=== PATIENT | male | born 1965 | race Caucasian/White ===

== ENCOUNTER → 2021-01-30 16:47 | Outpatient (CLI) | payer OTHER, SELFPAY ==
--- NOTE | ~2021-01-30 | XR_ITS ---
XR knee LT 3V DATE: 01/30/2021 17:24 INDICATION: Left knee pain TECHNIQUE: Standing AP and lateral views. [place] view COMPARISON: None FINDINGS: There is mild loss of height at the medial compartment joint . No fracture or dislocation, joint effusion, radiopaque intra-articular loose body or chondrocalcinosis. IMPRESSION: Mild loss of medial compartment joint space Reviewed, dictated and finalized at location A.
--- NOTE | ~2021-01-30 | XR_ITS ---
XR shoulder RT min 2V DATE: 01/30/2021 17:24 INDICATION: Right shoulder pain TECHNIQUE: 4 views COMPARISON: None FINDINGS: There is degenerative spurring at the acromioclavicular joint. No fracture or dislocation, periosteal reaction or bone destruction or abnormal soft tissue calcifica tion. IMPRESSION: Degenerative spurring at acromioclavicular joint Reviewed, dictated and finalized at location A.
== END ==
PROVIDERS: PCP Family Medicine; Visit Provider Family Medicine
DX: M25.562 Pain in left knee (principal); M25.511 Pain in right shoulder; M77.8 Other enthesopathies, not elsewhere classified; R93.7 Abnormal findings on diagnostic imaging of other parts of musculoskeletal system
CPT/HCPCS: 73030; 73562

== ENCOUNTER 2024-05-24 16:44 | Emergency (ER) | payer OTHER, SELFPAY ==
--- NOTE | ~2024-05-24 | XR_ITS ---
EXAM: XR finger 5th RT min 2V DATE: 05/24/2024 17:49 HISTORY: R 5th digit injury . COMPARISON: None available. FINDINGS: Normal mineralization. No fracture. One half bone width anterior displacement of the right fifth middle phalange. No lytic or blastic lesion. Joint spaces are maintained. No erosion or perios teal change. Soft tissue swelling over the right fifth PIP joint. IMPRESSION: Subluxation/mild dislocation of the right fifth PIP joint, with one half bone width anter ior displacement of the middle phalange. No fracture detected. Reviewed, dictated and finalized at location K. IMPRESSION: Subluxation/mild dislocation of the right fifth PIP joint, with one half bone width anterior displacement of the middle phalange. No fracture dete cted.
--- NOTE | ~2024-05-24 | XR_ITS ---
EXAM: XR finger 5th RT min 2V DATE: 05/24/2024 19:20 HISTORY: reduction . COMPARISON: Same date at 5:47 PM. FINDINGS/IMPRESSION: Successful interval reduction of the right fifth PIP joint. No fracture detected . Reviewed, dictated and finalized at location K.
[2024-05-24 16:49] VITALS: BP 123/74; PULSE 70; RESP 16; TEMP 36.4; O2SAT 100
--- NOTE | 2024-05-24 17:48 | ED.UPPEXIN ---
HPI - Extremity Injury (Upper) General Chief Complaint: Extremity Injury, Upper Stated Complaint: right finger injury Time Seen by Provider: 05/24/24 17:02 History of Present Illness HPI narrative: Patient is a 58-year-old male who presents to the ER after landing on his right pinky after a fall. He reports he slipped on wet turf and caught his 5th digit underneath himself. Patient reports he has taken ibuprofen at home for pain relief and is helping. He endorses significant swelling and bruising on that digit but is still able to move it at the joints. Patient denies any other symptoms illness, trauma, pain. Related Data Allergies Allergy/AdvReac Type Severity Reaction Status Date / Time No Known Allergies Allergy Verified 05/24/24 16:47 Review of Systems Review of Systems: All systems reviewed & are unremarkable except as noted in HPI and below Exam Narrative: GENERAL: Well appearing, well-nourished, non-toxic, in no acute distress. HEAD: Normocephalic, atraumatic. NECK: Supple. No adenopathy, no masses. RESPIRATORY: Airway patent, respirations nonlabored. Clear to auscultation bilaterally, no rales, rhonchi, wheezing. CARDIOVASCULAR: Regular rate and rhythm without murmurs, rubs, or gallops. Peripheral pulses 2+ and equal bilaterally. ABDOMINAL: Soft, nontender, nondistended, no hepatosplenomegaly. Normoactive BS. MUSCULOSKELETAL: Moves all extremities. Strength/ROM intact without gross deformities. Decreased movement at the PIP and DIP on the 5th digit of his R hand. SKIN: Warm, dry, normal color. No rashes. Right hand 5th digit is bruised and swollen. NEURO: A&O X3. Speech clear. Cranial nerves II-XII grossly intact. Steady gait. No ataxic movements. PSYCHIATRIC: Appropriate mood and affect. Normal interaction. Course Vital Signs Vital signs: Vital Signs Temperature 36.4 C L 05/24/24 16:49 Pulse Rate 70 05/24/24 16:49 Respiratory Rate 16 05/24/24 16:49 Blood Pressure 123/74 05/24/24 16:49 Pulse Oximetry 100 05/24/24 16:49 Oxygen Delivery Room Air 05/24/24 16:49 Temperature 36.4 C L 05/24/24 16:49 Pulse Rate 70 05/24/24 16:49 Respiratory Rate 16 05/24/24 16:49 Blood Pressure 123/74 05/24/24 16:49 Pulse Oximetry 100 05/24/24 16:49 Oxygen Delivery Room Air 05/24/24 16:49 MDM - Extremity Injury (Upper) MDM Narrative Medical decision making narrative: Patient is a 58-year-old male who presents to the ER after landing on his right pinky after a fall. He reports he slipped on wet turf and caught his 5th digit underneath himself. Patient reports he has taken ibuprofen at home for pain relief and is helping. He endorses significant swelling and bruising on that digit but is still able to move it at the joints. Patient denies any other symptoms illness, trauma, pain. Upon examination patient has decreased movement at the PIP and DIP on the 5th digit of his R hand. Right hand 5th digit is bruised and swollen. Patient's right 5th digit is dislocated but not fracture according to x-ray. Digital block placed at the base of patient's finger. Once patient endorses numbness, [employer] pulled on finger and reduced the dislocation. Repeat x-ray was performed pre reduction was successful. Will splint the patient's R 5th digit and discharged to home with plan to follow up with his PCP in one week. Differential Diagnosis Differential diagnosis: Likely finger sprain, dislocation of finger and other (finger infection) Imaging Data Attestation: I personally reviewed and interpreted this imaging study as follows: Radiologist's impression: Impressions Finger X-Ray 05/24/24 18:06 IMPRESSION: Subluxation/mild dislocation of the right fifth PIP joint, with one half bone width anterior displacement of the middle phalange. No fracture detected. Discharge Plan Discharge Clinical Impression: Dislocation of finger Patient Disposition: Home, Self-
== END 2024-05-24 20:32 | disposition home or self-care (01) ==
PROVIDERS: Emergency Provider Registered Nurse; PCP Family Medicine
DX: S63.286A Dislocation of proximal interphalangeal joint of right little finger, initial encounter (principal); W01.0XXA Fall on same level from slipping, tripping and stumbling without subsequent striking against object, initial encounter
CPT/HCPCS: 26770; 73140; 99285

== ENCOUNTER 2024-07-28 12:16 | Outpatient (CLI) | payer OTHER, SELFPAY ==
--- NOTE | ~2024-07-28 | XR_ITS ---
XR wrist LT min 3V DATE: 07/28/2024 12:27 INDICATION: Left wrist pain TECHNIQUE: 4 views COMPARISON: None FINDINGS: No fracture, dislocation, periosteal reaction or bone destruction. Joint spaces are preserved. No erosive change or chondrocalcinosis. IMPRESSION: Negative Reviewed, dictated and finalized at location A. L CUTTER IMPRESSION: Negative
--- NOTE | ~2024-07-28 | XR_ITS ---
XR hand RT 2V DATE: 07/28/2024 12:27 INDICATION: Right hand pain TECHNIQUE: AP and lateral views COMPARISON: None FINDINGS: There is flexion deformity at the proximal interphalangeal joint of the fifth digit. No fracture, dislocation, periosteal reaction or bone destruction. No erosive change or chondrocalcin osis. Possible small pinpoint radiopaque foreign body of second digit. Minimal degenerative change at the interphalangeal joints. 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 [employer]
== END 2024-07-28 12:17 | disposition home or self-care (01) ==
LOC: MICIMG 12:17
PROVIDERS: PCP Family Medicine; Visit Provider Family Medicine
DX: M21.241 Flexion deformity, right finger joints (principal); M25.532 Pain in left wrist
CPT/HCPCS: 73110; 73120